=== PATIENT | female | born 1960 ===

== ENCOUNTER 2017-08-29 22:00 | Emergency (ER) | payer BC, OTHER ==
[~2017-08-29] VITALS: Ht 175.3 cm; Wt 65.8 kg
[2017-08-29] MEDS ORDERED: LIDOCAINE 1% INJ 20 ML 20 ML VIAL ONE (22:03)
[2017-08-29] MEDS ORDERED: LIDOCAINE 1% INJ 20 ML 20 ML VIAL INJ ONE (22:15)
[2017-08-29] MEDS ORDERED: TETANUS,DIPTH,PERTUSS P/F (BOOSTRIX) 0.5 ML VIAL IM ONE (22:15)
[2017-08-29] MEDS ORDERED: fentaNYL INJECTION 100 MCG/2 ML AMP IVP ONE (22:15)
[2017-08-29] MEDS ORDERED: fentaNYL INJECTION 100 MCG/2 ML AMP IM ONE (22:15)
--- NOTE | 2017-08-29 22:30 | ED Lower Extremity ---
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 Pt is reporting severe pain and hysterical Nursing Sepsis Screen: No Definite Risk Source: patient, spouse Exam Limitations: no limitations History of Present Illness Date Seen by Provider: Aug 29, 2017 Time Seen by Provider: 22:05 Initial Comments The patient presents to the ER by private conveyance with a chief complaint that she was at a picnic and a 1-year-old child a plastic stem from the lower and it landed impaling her left foot great toe through and through. Several bleeding and pain at the site. Lortab and lorazepam that belonged to somebody else but was unable to easily remove it. She has no significant medical issues and does not follow with a doctor. She does not know last time she had a tetanus shot she is sure it was many years ago. She's not having any nausea fevers or chills. Allergies and Home Medications Allergies Coded Allergies: Penicillins (Verified Allergy, Unknown, 08/29/17) Patient Home Medication List Home Medication List Reviewed: Yes Constitutional: No chills, No diaphoresis EENTM: No ear discharge, No hearing loss, No ear pain Respiratory: No cough, No short of breath Cardiovascular: No chest pain, No palpitations Gastrointestinal: No abdominal pain, No constipation, No diarrhea Past Asbcion-Zxgxlb-Qroiet Hx Patient Social History Alcohol Use: Occasionally Uses Alcohol Beverage of Choice: Beer Recreational Drug Use: No Smoking Status: Current Everyday Smoker Type Used: Cigarettes Recent Foreign Travel: No Contact w/Someone Who Travel: No Recent Infectious Disease Expo: No Recent Hopitalizations: No Immunizations Up To Date Tetanus Booster (TDap): Unknown Seasonal Allergies Seasonal Allergies: No Past Medical History Surgeries: Yes (Breast bx, uterine ablation) Physical Exam Vital Signs Vital Signs - First Documented 08/29/17 22:00 Temp 97.1 Pulse 84 Resp 20 B/P (MAP) 124/96 (105) Pulse Ox 100 O2 Delivery Room Air Capillary Refill : Less Than 3 Seconds General Appearance: WD/WN, no apparent distress HEENT: PERRL/EOMI, pharynx normal Cardiovascular: normal peripheral pulses, regular rate, rhythm Respiratory: no respiratory distress, no accessory muscle use Ankles: bilateral ankle non-tender, bilateral ankle normal inspection, bilateral ankle normal range of motion, bilateral ankle no evidence of injury Feet: left foot other (great toe with a foreign body and paling the lateral edge lateral to the nail. Laceration on the top is about 1 cm wide and the laceration on the bottom is about three quarters of a centimeter wide.) Procedures/Interventions Wound Location: Lower Extremities Other Wound Location Lateral left great toe Wound's Depth, Shape: linear (through and through) Wound Explored: contaminated Irrigated w/ Saline (ccs): 10 Betadine Prep?: Yes Anesthesia: 1% Lidocaine Volume Anesthetic (ccs): 4 Progress The wound was cleaned thoroughly with chlorhexidine soap water and doused with Betadine. We then infiltrated in a bilateral nerve block fashion the great toe with 1% lidocaine without epinephrine. We put 1 cc of lidocaine in the wound directly. We removed the object with direct rearward pressure and there is a minimal amount of bleeding. The wound was then x-rayed and thoroughly flushed with sterile saline. Patient tolerated procedure well. She also received 100 mg of fentanyl IM. Gave her a tetanus shot. Progress/Results/Core Measures Results/Orders My Orders Orders - SHRADDHA CORONADO Lidocaine 1% Inj 20 Ml (Xylocaine 1% Inj (08/29/17 22:15) Foot, Left, 3 Views (08/29/17 22:04) Fentanyl Injection (Sublimaze Injection (08/29/17 22:15) Dipht,Pertuss(Acell),Tet Adult (Boostrix (08/29/17 22:15) Fentanyl Injection (Sublimaze Injection (08/29/17 22:15) Medications Given in ED Current Medications Medications Dose Ordered Sig/Natalia Route Start Time Stop Time Status Last Admin Dose Admin Diphtheria/ Tetanus/Acell Pertussis 0.5 ml ONCE ONCE IM 08/29/17 22:15 08/29/17 22:17 DC 08/29/17 22:27 0.5 ML Fentanyl Citrate 100 mcg ONCE ONCE IM 08/29/17 22:15 08/29/17 22:17 DC 08/29/17 22:18 100 MCG Lidocaine HCl 20 ml ONCE ONCE INJ 08/29/17 22:15 08/29/17 22:16 DC 08/29/17 22:11 20 ML Vital Signs/I&O 08/29/17 08/29/17 22:00 22:27 Temp 97.1 97.1 Pulse 84 Resp 20 B/P (MAP) 124/96 (105) Pulse Ox 100 O2 Delivery Room Air Blood Pressure Mean: 105 Progress Progress Note : Time: 22:41 Progress Note The wound was irrigated as best as possible with about 30 cc of sterile saline and chlorhexidine soap water. Leave the wound open as it is not bleeding at this time but slowly oozing. Do not want to close a dirty wound. Diagnostic Imaging Diagonstic Imaging: Xray Plain Films/CT/US/NM/MRI: other (foot) Comments No fracture, free air, foreign body. Reviewed: Reviewed by Me Departure Impression Primary Impression: Foreign body foot/toe Disposition: HOME, SELF-CARE Condition: Improved Departure-Patient Inst. Decision time for Depature: 22:40 Referrals: UNKNOWN (PCP/Family) Primary Care Physician Patient Instructions: Wound Care (DC) Add. Discharge Instructions: Keep the wound clean at least daily with soap and water. Do not use anti- astringent's such as hydrogen peroxide, alcohol or Betadine as this will slow the wound healing process. Do not submerge the foot especially in dirty water for at least 2 days. Showering is okay however. After 2 days you can just use a Band-Aid if necessary. Use Vaseline and either gauze or a large Band-Aid around the toe. If the toe becomes swollen and red, hot or you start to have fevers, chills or nausea you should return to care sooner. Keep the foot elevated above the level of your heart when possible to help keep swelling down. You may use Motrin 800 mg every 8 hours in addition to hydrocodone one to 2 tablets every 6 hours for your pain. Hydrocodone will cause drowsiness as well as constipation. You can use MiraLAX to combat constipation. Would be amaro to follow up with a primary care provider in the next week to have the wound reevaluated. All discharge instructions reviewed with patient and/or family. Voiced understanding. Scripts Hydrocodone Bit/Acetaminophen (Hydrocodone/Acetaminophen 5/325mg Tablet) 1 Tab Tab 1-2 EACH PO Q6H PRN for BREAKTHROUGH PAIN, #20 TAB 0 Refills Prov: SHRADDHA CORONADO 08/29/17 Sulfamethoxazole/Trimethoprim (Bactrim Ds Tablet) 1 Each Tablet 1 EACH PO BID for 7 Days, #14 TAB 0 Refills Prov: SHRADDHA CORONADO 08/29/17 SHRADDHA CORONADO Aug 29, 2017 22:30
[2017-08-29] MEDS ORDERED: SULF1TAB35 PO (22:44)
[2017-08-29] MEDS ORDERED: ACHD5005 PO (22:44)
[2017-08-29 22:58] VITALS: BP 124/96
[2017-08-29] MEDS ORDERED: TRIM/SULFAMETH 160/800 (SEPTRA DS) TAB PO ONE (23:00)
[2017-08-29] MEDS ORDERED: RX-HYDROCODONE/APAP 5/325 MG #4 TAB PK PO PRN (23:00)
--- NOTE | 2017-08-30 07:53 | Diagnostic Imaging Report ---
Left foot at 1032 hours. INDICATION: Injury. 3 views were obtained. FINDINGS: There is a faint linear lucency extending through the neck of the proximal phalanx of the fifth digit. This finding is questionable for a nondisplaced fracture. There is also deformity of the head of the fifth metatarsal. This is most likely a sequela of prior trauma. No other fracture or acute bony abnormality is noted. There is a small calcaneal spur. The soft tissues are unremarkable. In particular, there is no evidence for radiopaque foreign body. IMPRESSION: 1. There is a question of a nondisplaced fracture involving the neck of the proximal phalanx of the fifth digit. Clinical followup is recommended. 2. There is no acute bony abnormality noted otherwise. 3. There is no evidence for radiopaque foreign body. Dictated by: Dictated on workstation # [id number]
== END 2017-08-29 22:58 | disposition home or self-care (01) ==
LOC: ER 22:04
DX: S90.452A Superficial foreign body, left great toe, initial encounter (principal); F17.210 Nicotine dependence, cigarettes, uncomplicated; Z23 Encounter for immunization; Z98.890 Other specified postprocedural states; Z88.0 Allergy status to penicillin; W45.8XXA Other foreign body or object entering through skin, initial encounter
CPT/HCPCS: 73630; 90471; 90715; 96372